=== PATIENT | female | born 1940 | race Hispanic/Latino ===

== ENCOUNTER → 2021-07-25 | Outpatient (CLI) | payer OTHER | END | disposition home or self-care (01) | LOC: RAH 10:35 | PROVIDERS: ATTEND Internal Medicine Gastroenterology | DX: K31.89 Other diseases of stomach and duodenum (principal); R10.13 Epigastric pain; R11.0 Nausea | CPT/HCPCS: 78264; A9541 ==

== ENCOUNTER → 2025-03-07 | Outpatient (CLI) | payer OTHER ==
--- NOTE | 2025-03-07 23:55 | HMCIMG ---
EXAM: CT BRAIN WITHOUT CONTRAST Technique: Axial computed tomography of the brain with sagittal and coronal reformations. Dose reduction per ALARA (automatic exposure control and iterative reconstruction). CTDIvol 49.20 mGy; DLP 861.70 mGy???cm. Contrast: No intravenous contrast administered. Clinical Information: Unspecified head injury, initial encounter. Comparison: None. Findings: Brain: Blanchard???white matter differentiation is preserved. No acute intraparenchymal hemorrhage, mass, or mass effect identified. Patchy hypoattenuation in the periventricular and subcortical white matter, most consistent with chronic small vessel ischemic change. Ventricles and extra-axial spaces: Ventricles and sulci are mildly prominent for age-related volume loss; no hydrocephalus. Basal cisterns are patent. No extra-axial fluid collection. Midline structures are not deviated. Skull and extracranial soft tissues: Calvarium and skull base are intact without acute fracture. Orbits: Globes and orbital contents are unremarkable on this non-contrast study. Paranasal sinuses and mastoid air cells: Paranasal sinuses and mastoid air cells are clear. IMPRESSION: 1. No acute intracranial abnormality, including no acute hemorrhage, mass, or fracture. 2. Chronic microangiopathic white matter changes, manifesting as patchy hypoattenuation in the periventricular and subcortical white matter. 3. Mild generalized cerebral volume loss consistent with age, with mildly prominent ventricles and sulci. /[place]
== END | disposition home or self-care (01) ==
LOC: RAH 13:14
PROVIDERS: ATTEND Internal Medicine
DX: S09.90XA Unspecified injury of head, initial encounter (principal); I67.82 Cerebral ischemia; X58.XXXA Exposure to other specified factors, initial encounter; Y93.89 Activity, other specified; Y92.89 Other specified places as the place of occurrence of the external cause; Y99.8 Other external cause status
CPT/HCPCS: 70450